=== PATIENT | female | born 1995 | race Two or more races ===

== ENCOUNTER → 2022-09-11 | Outpatient (CLI) | payer OTHER ==
[2022-09-11 18:53] LABS: Bilirubin, Urine Neg (Neg); Blood, Urine Neg (Neg); Glucose Qualitative, Urine Neg (Neg); Ketones, Urine Neg (Neg); Leukocyte Esterase, Urine Neg (Neg); Nitrite, Urine Neg (Neg); Protein, Urine Neg (Neg); Urobilinogen, Urine NORM (Normal)
[2022-09-11 19:12] LABS: Appearance, Urine Clear (Clear); Color, Urine Pale Yellow (P-Yellow)
== END | disposition home or self-care (01) ==
LOC: LAB SHORT 14:35
PROVIDERS: Family Medicine
DX: Z34.91 Encounter for supervision of normal pregnancy, unspecified, first trimester (principal)
CPT/HCPCS: 81003; 87086

== ENCOUNTER → 2022-10-07 | Outpatient (CLI) | payer OTHER ==
[2022-10-09 03:11] LABS: CHLAMYDIA TRACHOMATIS, NAA Negative (Negative)
== END ==
LOC: LAB SHORT 12:52 → LAB 12:52
PROVIDERS: Family Medicine
DX: Z34.91 Encounter for supervision of normal pregnancy, unspecified, first trimester (principal); Z3A.00 Weeks of gestation of pregnancy not specified
CPT/HCPCS: 87491; 87591; G0145

== ENCOUNTER → 2023-02-10 | Outpatient (CLI) | payer OTHER ==
[2023-02-10 14:20] LABS: BASOPHILS ABSOLUTE AUTO 0.06 K/mm3 (0.00-0.23); BASOPHILS PERCENT AUTO 1 % (0-2); EOSINOPHILS ABSOLUTE AUTO 0.03 K/mm3 (0.00-0.68); EOSINOPHILS PERCENT AUTO 0 % (0-6); Hemoglobin 12.3 g/dL (11.5-16.0); IMMATURE GRAN ABSOLUTE AUTO 0.06 K/mm3 (0.00-0.10); IMMATURE GRAN PERCENT AUTO 1 % (0-1); LYMPHOCYTES ABSOLUTE AUTO 1.66 K/mm3 (0.84-5.20); LYMPHOCYTES PERCENT AUTO 14 % (21-46); MONOCYTES ABSOLUTE AUTO 0.66 K/mm3 (0.16-1.47); MONOCYTES PERCENT AUTO 5 % (4-13); Mean Corpuscular HGB Conc 34.2 g/dL (31.5-36.5); Mean Corpuscular Volume 97 fL (80-100); Mean Platelet Volume 10.4 fL (9.1-12.4); NEUTROPHILS ABSOLUTE AUTO 9.76 K/mm3 (1.96-9.15); NEUTROPHILS PERCENT AUTO 80 % (41-73); Platelet Count 456 K/mm3 (150-400); RDW Coefficient Variation 11.8 % (11.7-14.2); RDW Standard Deviation 41.5 fL (35.1-46.3); Red Blood Cell Count 3.73 M/mm3 (3.80-5.20); White Blood Cell Count 12.23 K/mm3 (4.00-11.30)
== END | disposition home or self-care (01) ==
LOC: LAB SHORT 12:00 → LAB 12:00
PROVIDERS: Family Medicine
DX: Z34.02 Encounter for supervision of normal first pregnancy, second trimester (principal)
CPT/HCPCS: 82950; 85025

== ENCOUNTER → 2023-04-14 | Outpatient (CLI) | payer OTHER | LOC: LAB 16:34 → LAB SHORT 16:34 | DX: Z34.93 Encounter for supervision of normal pregnancy, unspecified, third trimester (principal); Z3A.00 Weeks of gestation of pregnancy not specified | CPT/HCPCS: 87081; 87150 ==

== ENCOUNTER 2023-05-11 05:52 | Inpatient (IN) | payer OTHER ==
[2023-05-11] VITALS (19 sets, daily range): BP systolic 96–140; BP diastolic 52–84
[~2023-05-11] VITALS: Ht 160 cm; Wt 66.4 kg
[2023-05-11 10:21] LABS: BASOPHILS ABSOLUTE AUTO 0.06 K/mm3 (0.00-0.23); BASOPHILS PERCENT AUTO 0 % (0-2); EOSINOPHILS PERCENT AUTO 0 % (0-6); Hematocrit 36.3 % (33.0-51.0); Hemoglobin 12.3 g/dL (11.5-16.0); IMMATURE GRAN PERCENT AUTO 1 % (0-1); LYMPHOCYTES ABSOLUTE AUTO 1.71 K/mm3 (0.84-5.20); LYMPHOCYTES PERCENT AUTO 10 % (21-46); MONOCYTES ABSOLUTE AUTO 0.53 K/mm3 (0.16-1.47); MONOCYTES PERCENT AUTO 3 % (4-13); Mean Corpuscular HGB 29.6 pg (26.0-34.0); Mean Corpuscular HGB Conc 33.9 g/dL (31.5-36.5); Mean Corpuscular Volume 87 fL (80-100); Mean Platelet Volume 10.4 fL (9.1-12.4); NEUTROPHILS ABSOLUTE AUTO 15.61 K/mm3 (1.96-9.15); NEUTROPHILS PERCENT AUTO 87 % (41-73); Platelet Count 462 K/mm3 (150-400); RDW Coefficient Variation 14.1 % (11.7-14.2); RDW Standard Deviation 44.4 fL (35.1-46.3); Red Blood Cell Count 4.16 M/mm3 (3.80-5.20); White Blood Cell Count 18.01 K/mm3 (4.00-11.30)
[2023-05-12] VITALS (9 sets, daily range): BP systolic 103–123; BP diastolic 58–79
--- NOTE | 2023-05-12 00:44 | NUR ---
RN WENT OVER NORMAL MEDICATIONS AND 24 HOUR TESTING WITH BOTH PARENTS. RN EDUCATED PT'S REGARDING IMPORTANCE OF ALL SUGGESTED MED/TESTING ON NB. RN EXPLAINED THAT THE NB SCREEN THEY ARE DECLINING COULD SHOW LIFE THREATENING METABOLIC DISEASES/DISORDERS THAT THEIR BABY COULD HAVE WITHOUT KNOWING/TELLING OTHERWISE BY HER CURRENT APPERANCE. PARENTS AGREED TO CARDIAC CHALLENGE TEST, VITAMIN K, AND NB HEARING SCREEN.
--- NOTE | 2023-05-12 02:20 | NUR ---
WHILE RN WAS TAKING PT'S MIDNIGHT VITALS THE PT'S HEART RATE WAS FOUND TO BE 134 BPM. RN INQUIRED WITH PT IF SHE FELT SYMPTOMATIC AT ALL (LIGHT HEADED, DIZZY, TIRED). PT STATED SHE FELT A LITTLE TIRED BUT CHAULKED IT UP TO LABORING ALL DAY AND NOT SLEEPING THE PREVIOUS NIGHT. OTHER VITAL SIGNS OF PT'S WERE REASSURING. UPON ASCULTATION OF PT'S HEART RATE IT DID SOUND IRREGULAR. PT DENIES HAVING A HX OF A HEART MURMUR. RN WILL PASS THIS OFF IN REPORT TO ATTENDING PHYSICIAN WILL BE MADE AWARE.
[2023-05-12 06:13] LABS: Hematocrit 31.5 % (33.0-51.0); Hemoglobin 10.7 g/dL (11.5-16.0); Mean Corpuscular HGB 29.6 pg (26.0-34.0); Mean Corpuscular Volume 87 fL (80-100); Mean Platelet Volume 10.7 fL (9.1-12.4); Platelet Count 369 K/mm3 (150-400); RDW Coefficient Variation 14.2 % (11.7-14.2); RDW Standard Deviation 44.5 fL (35.1-46.3); Red Blood Cell Count 3.62 M/mm3 (3.80-5.20); White Blood Cell Count 26.49 K/mm3 (4.00-11.30)
--- NOTE | 2023-05-12 17:28 | NUR ---
MOM REFUSING TO DO SCREEN AT THIS TIME REFUSAL PAPER SIGNED AND RISKS DISCUSSED WITH NURSE AND DR BETANCUR AND DR NICOLE, SCREENS GIVEN TO MOM INCASE SHE CHANGES HER MIND #[phone]
--- NOTE | 2023-05-12 21:29 | NUR ---
PT D/C'D HOME, PPFU MADE AND PT AWARE. PT VERBALIZES UNDERSTANDING OF PP AND NB INSTRUCTIONS.
== END 2023-05-12 21:15 | disposition home or self-care (01) | DRG 806 ==
LOC: OBS 05:52 → BC 05:56 → OBS 09:17 → BC 09:19
PROVIDERS: ADMIT Family Medicine
PROC: 10E0XZZ Delivery of Products of Conception, External Approach (ICD-10-PCS; principal; 2023-05-11)
DX: O48.0 Post-term pregnancy (principal); O98.32 Other infections with a predominantly sexual mode of transmission complicating childbirth; Z37.0 Single live birth; A60.09 Herpesviral infection of other urogenital tract; O70.0 First degree perineal laceration during delivery; Z87.891 Personal history of nicotine dependence; Z3A.40 40 weeks gestation of pregnancy
CPT/HCPCS: 36415; 59025; 85025; 85027; 86850; 86900; 86901; 93005; 93010; A9270; J2590; J3010; J7120